=== PATIENT | male | born 2000 | race Caucasian/White ===

== ENCOUNTER 2023-03-11 10:41 | Emergency (ER) | payer MEDICAID ==
[~2023-03-11] VITALS: Ht 182.9 cm; Wt 137.2 kg
[2023-03-11 10:41] VITALS: BP 177/92; PULSE 86; RESP 16; TEMP 98.3; O2SAT 100
[2023-03-11] MEDS ORDERED: PRED20TA PO (10:51)
[2023-03-11] MEDS ORDERED: ACYC-129 PO (10:51)
[2023-03-11] MEDS ORDERED: CEPH-585 PO (10:51)
== END 2023-03-11 11:14 | disposition home or self-care (01) ==
LOC: ER 10:41
DX: G51.0 Bell's palsy (principal)
CPT/HCPCS: 99283